=== PATIENT | male | born 1995 | race African-American/Black ===

== ENCOUNTER 2020-01-27 18:42 | Emergency (ER) | payer OTHER ==
[~2020-01-27] VITALS: Ht 172.7 cm; Wt 63.5 kg
[2020-01-27] MEDS ORDERED: KEFLEX500 M2 PO (22:10)
[2020-01-27] MEDS ORDERED: IBUPROFEN 600600 M1 PO (22:10)
[2020-01-27] MEDS ORDERED: NORCO 5-325 TA1 EAC1 PO (22:10)
[2020-01-27 22:27] VITALS: BP 141/105
== END 2020-01-27 22:42 | disposition home or self-care (01) ==
LOC: ER 18:42
DX: S60.511A Abrasion of right hand, initial encounter (principal); S80.212A Abrasion, left knee, initial encounter; S80.211A Abrasion, right knee, initial encounter; S60.551A Superficial foreign body of right hand, initial encounter; V86.55XA Driver of 3- or 4- wheeled all-terrain vehicle (ATV) injured in nontraffic accident, initial encounter; Y93.I9 Activity, other involving external motion; Y92.488 Other paved roadways as the place of occurrence of the external cause; Y99.8 Other external cause status